=== PATIENT | male | born 1975 | race Caucasian/White ===

== ENCOUNTER 2017-04-08 08:58 | Day surgery (SDC) | payer OTHER ==
[2017-04-07 13:29] VITALS: BMI 25.0
[2017-04-08] MEDS ORDERED: ROPIVACAINE HCL 0.5% 30ML VIAL ONE (11:58)
[2017-04-08] MEDS ORDERED: MIDAZOLAM HCL 2 MG/2 ML SINGLE DOSE VIAL ONE (11:58)
[2017-04-08] MEDS ORDERED: DEXAMETHASONE SOD PHOSPHATE/PF 10 MG/ML SDV ONE (11:58)
--- NOTE | 2017-04-08 12:26 | HP ---
History & Physical Update - History History: No Change - Physical Physical: No Change - Assessment Assessment: No Change - Plan Plan: No Change (nc)
--- NOTE | 2017-04-08 12:34 | OP ---
Operative Note - Note: Operative Date: 04/08/17 Pre-Operative Diagnosis: r distal biceps tear Operation: repair Implants: mitek g2's Surgeon: Kwan Love V Anesthesia: General Estimated Blood Loss (mls): 2 Operative Report Dictated: Yes
[2017-04-08] MEDS ORDERED: DEXAMETHASONE SOD PHOSPHATE 4 MG/1 ML VIAL ONE (14:39)
[2017-04-08] MEDS ORDERED: ceFAZolin SODIUM 1 GM VIAL ONE (14:39)
[2017-04-08] MEDS ORDERED: ONDANSETRON 4 MG/2 ML VIAL ONE (14:39)
[2017-04-08] MEDS ORDERED: ONDANSETRON 4 MG/2 ML VIAL IVPUSH PRN (15:07)
[2017-04-08] MEDS ORDERED: oxyCODONE HCL 5 MG TABLET PO PRN (15:07)
[2017-04-08] MEDS ORDERED: LACTATED RINGERS SOLUTION 1,000 ML IV SCH (15:15)
--- NOTE | 2017-04-08 15:59 | SURG ---
Surgery Vp Product Note Vp Product: Christa Calvo PA-C Date of Service: 04/08/17 Diagnosis: right distal biceps tear Procedure: repair of right distal biceps tear I was present for the entirety of the operative procedure. For further detail, please refer to operative report. Visit type - Case Type Case Type: Scheduled Admission - Emergency Emergency Visit: No - New patient This patient is new to me today: Yes Date on this admission: 04/08/17 - Critical Care Critical Care patient: No
--- NOTE | 2017-04-08 16:08 | OP ---
DATE OF OPERATION: 04/08/2017 PREOPERATIVE DIAGNOSIS: Right distal biceps rupture. POSTOPERATIVE DIAGNOSIS: Right distal biceps rupture. PROCEDURE PERFORMED: Repair, right distal biceps rupture. 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 He presented with pain and weakness of supination and a deformity. MRI confirmed the diagnosis of a displaced distal biceps rupture. SURGICAL FINDINGS: He was seen to have a complete rupture of the distal biceps, which was debrided and repaired anatomically to the radial tuberosity using Mitek G2 anchors. ANTIBIOTICS: Kefzol 2 g. COMPLICATIONS: None. WOUND TYPE: Clean. SPECIMENS: Distal biceps debridement specimen. ANESTHESIA: General with local block, . BLOOD LOSS: None. TOURNIQUET TIME: Was 42 minutes. PROCEDURE: Patient brought to the operating room, placed on the table in the supine position. The right upper extremity was prepped and draped with Betadine solution in the usual sterile fashion. Esmarch bandage was applied. Antibiotics were given. Sterile prep and drape was performed with Betadine solution, and proper timeout was called. Surgery was commenced through a transverse incision made 2 fingerbreadths distal to the elbow crease directly over the radial tuberosity. The lateral antebrachial cutaneous nerve was carefully sought and protected. The cephalic veins were protected. We were able to follow down the old tube of the biceps using the finger, right down to the tuberosity. Tuberosity was exposed. We were very careful to avoid leaving bone dust. We used a small surgical cristino to create a docking port for the new tendon, and we placed 2 Mitek G2 anchors using standard technique. We pulled back. We had excellent control. Attention was now turned to the tendon. We discovered the tendon stump subcutaneously, and it was quite torn up with quite a bit of granulation tissue already forming around the end. There was serosanguinous fluid around it. We dissected back to good tissue and sent the dissection specimen. We now, from the most-distal anchor, took 1 arm of suture and went in the distal end and then did 4 wrapping sutures up one side. We went across and then did 4 baseball-type stitches down the other side. We then held tension and pulled so all the slack was taken out of this construct. We now supinated maximally, did a final irrigation, and pulled up on the second arm of that first anchor suture, ramming the biceps into a repaired bone dock. Tension was held on one side, and we tied 6 alternating knots, securing the tendon directly into the bony dock. We now took off the cutting needles and replaced them with atraumatic needles on the second anchor and then passed these sutures up in a zigzag [place]-type fashion and tied them down securely, giving double security to this construct. We put the elbow through a range of motion, and the biceps had good excursion and not too much tension. We irrigated again thoroughly. We dropped the tourniquet. We made sure the radial recurrent branches were not bleeding. They were not and were quite quiet. We closed deep with 3-0 Monocryl, and the skin was closed with strips. Dressing was applied, and then a long-arm cast was applied with triple padding with the elbow in neutral supination and 90 degrees of flexion. He returned to Recovery, having tolerated the procedure well. We are discharging him to home. I am giving him 20 Percocets to take. However, he has told me he does not want narcotics. They are available for him at his pharmacy via the electronic prescription service here at the hospital. He will otherwise be using Advil. He has to maintain a dry cast, and he can maintain finger motion, etc. He has a very long-acting block from Anesthesia so he has to use a sling until this wears off. He has complete numbness and motor block of the upper extremity. VIMAL DIAZ M.D. [id number]
[2017-04-08 16:50] VITALS: BP 104/73; PULSE 78; TEMP 97.7
== END 2017-04-08 16:45 | disposition home or self-care (01) ==
LOC: FASU 08:58
PROVIDERS: ATTEND Orthopaedic Surgery
PROC: 0LQ30ZZ Repair Right Upper Arm Tendon, Open Approach (ICD-10-PCS; principal; 2017-04-08 13:29)
DX: M66.821 Spontaneous rupture of other tendons, right upper arm (principal)